=== PATIENT | male | born 1970 | race Caucasian/White ===

== ENCOUNTER 2016-09-23 17:51 | Emergency (ER) | payer OTHER ==
[2016-09-23 18:00] VITALS: TEMP 98.2
[2016-09-23 18:32] LABS: % IMMATURE GRANULYOCYTES 0.1 % (0.0-1.1); ABSOLUTE IMMATURE GRANULOCYTES 0.01 10^3/uL (0.00-0.10); ADD DIFF? NO; ADD MORPH? NO; ADD SCAN? NO; ATYPICAL LYMPHOCYTE FLAG 0 (0-99); FRAGMENT RBC FLAG 0 (0-99); HEMATOCRIT 43.8 % (40.0-51.0); HEMOGLOBIN 15.4 g/dL (13.7-17.5); LEFT SHIFT FLG 0 (0-99); LIPEMIA HEMOLYSIS FLAG 90 (0-99); MEAN CELL HEMOGLOBIN 31.7 pg (27.9-34.1); MEAN CELL HEMOGLOBIN CONCENTR. 35.2 g/dL (32.4-36.7); MEAN CELL VOLUME 90.1 fL (81.5-99.8); PLATELET CLUMPS FLAG 0 (0-99); PLATELET COUNT 239 10^3/uL (150-400); RED BLOOD CELL COUNT 4.86 10^6/uL (4.40-6.38); RED CELL DISTRIBUTION WIDTH 11.9 % (11.5-15.2)
[2016-09-23 18:46] LABS: COLOR PALE YELLOW; LEUKOCYTE ESTERASE,URINE NEGATIVE (NEGATIVE); NITRITE,URINE NEGATIVE (NEGATIVE)
[2016-09-23 18:50] LABS: CALCIUM 9.4 mg/dL (8.5-10.4); CARBON DIOXIDE 24 mEq/l (22-31); CHLORIDE 104 mEq/L (97-110); CREATININE 0.8 mg/dL (0.7-1.3); GLOMERULAR FILTRATION RATE > 60; GLUCOSE 92 mg/dL (70-100); SODIUM 139 mEq/L (134-144)
[2016-09-23 18:56] LABS: ANION GAP 11 mEq/L (8-16); POTASSIUM 4.2 mEq/L (3.5-5.2)
[2016-09-23] MEDS ORDERED: KETOROLAC 15 MG/1 ML SDV IVP ONE (19:02)
--- NOTE | 2016-09-23 19:08 | EDPHY ---
H & P Stated Complaint: left flank pain, hurts to the touch or breathing deep. Time Seen by Provider: 09/23/16 18:30 HPI/ROS: CHIEF COMPLAINT: left lower rib pain HISTORY OF PRESENT ILLNESS: 45-year-old male presents emergency department complaining of left lower rib pain x5 days. Patient reports he was on a bungee jump trampoline 6 days ago when he did a front flip and landed funny. He states he felt dontae. He woke up the next morning with left lower anterior chest wall tenderness that was worse with movement and palpation. Patient states that day he did a trampoline jump, landed and had similar pain. He is a distance runner and everyday since this has happened he has run 9-11 miles. Pt reports today he felt pain with every step running. He took a deep after running and had a sharp pain in his abdomen. He denies nausea, vomiting or diarrhea, no abdominal pain, no lightheadedness or dizziness. Patient reports he had costochondritis 7 months ago and this feels mildly similar. He denies urinary frequency, urgency or dysuria. No fatigue. Normal appetite. REVIEW OF SYSTEMS: A comprehensive 10 point review of systems is otherwise negative aside from elements mentioned in the history of present illness. Source: Patient Exam Limitations: No limitations - Social History Smoking Status: Never smoked - Physical Exam Exam: Physical Exam Gen: Alert and Oriented, NAD HEENT: PERRL, moist mucous membranes NECK: no meningismus CV: regular rate and regular rhythm PULM: CTAB, no wheezes ABDOMEN: soft, non tender to palpation, left anterior lower chest wall tender to palpation, left lateral lower chest wall tenderness to palpation, BS present BACK: No CVA tenderness NEURO: Neurologically grossly intact EXTREMITIES: normal appearing SKIN: no rash or break in skin on exposed skin PSYCH: answers questions appropriately. Constitutional: Initial Vital Signs Temperature (C) 36.8 C 09/23/16 17:56 Heart Rate 51 L 09/23/16 17:56 Respiratory Rate 18 09/23/16 17:56 Blood Pressure 129/74 H 09/23/16 17:56 O2 Sat (%) 96 09/23/16 17:56 O2 Delivery Mode Room Air Allergies/Adverse Reactions: No Known Allergies Allergy (Verified 09/23/16 17:55) Home Medications: Medication Instructions Recorded NK [No Known Home Meds] 09/23/16 Medical Decision Making - Diagnostics Imaging Results: Imaging Impressions Ribs w/Chest X-Ray 09/23/16 19:01 Impression: 1. Nondisplaced fracture at the costochondral junction anterolateral left ninth rib. Imaging: I viewed and interpreted images myself ED Course/Re-evaluation: IV established, CBC, chemistry panel and urinalysis ordered. CBC and chemistry panel are unremarkable, urinalysis is normal with RBCs. Vital signs are normal , he is afebrile. Physical exam shows no abdominal tenderness, pinpoint tenderness to palpation to left lower anterior lateral ribs. Left rib series with PA chest ordered, patient is given 15 mg of IV Toradol. Patient has a nondisplaced fracture at the costochondral junction anterolateral left ninth rib. This explains his pain. He has normal room air oxygen saturation, no left upper quadrant abdominal pain. Patient will be discharged home. He is instructed to take ibuprofen, ice, rest, cough and deep breathe and return to the emergency department for any abdominal pain, shortness of breath, fevers, cough. Patient is comfortable with this plan. Differential Diagnosis: Diagnosis considered but not limited to rib fracture, costochondritis, muscle strain, kidney stone, spleen injury. - Data Points Laboratory Results: Laboratory Results 09/23/16 18:25 09/23/16 18:25 09/23/16 09/23/16 09/23/16 18:25 18:25 18:10 WBC 7.58 10^3/uL 10^3/uL (3.80-9.50) RBC 4.86 10^6/uL 10^6/uL (4.40-6.38) Hgb 15.4 g/dL g/dL (13.7-17.5) Hct 43.8 % % (40.0-51.0) MCV 90.1 fL fL (81.5-99.8) MCH 31.7 pg pg (27.9-34.1) MCHC 35.2 g/dL g/dL (32.4-36.7) RDW 11.9 % % (11.5-15.2) Plt Count 239 10^3/uL 10^3/uL (150-400) MPV 9.0 fL fL (8.7-11.7) Neut % (Auto) 50.1 % % (39.3-74.2) Lymph % (Auto) 42.0 % % (15.0-45.0) [place] % (Auto) 5.8 % % (4.5-13.0) Eos % (Auto) 1.3 % % (0.6-7.6) Baso % (Auto) 0.7 % % (0.3-1.7) Nucleat RBC Rel Count 0.0 % % (0.0-0.2) Absolute Neuts (auto) 3.80 10^3/uL 10^3/uL (1.70-6.50) Absolute Lymphs (auto) 3.18 10^3/uL H 10^3/uL (1.00-3.00) Absolute Monos (auto) 0.44 10^3/uL 10^3/uL (0.30-0.80) Absolute Eos (auto) 0.10 10^3/uL 10^3/uL (0.03-0.40) Absolute Basos (auto) 0.05 10^3/uL 10^3/uL (0.02-0.10) Absolute Nucleated RBC 0.00 10^3/uL 10^3/uL (0-0.01) Immature Gran % 0.1 % % (0.0-1.1) Immature Gran # 0.01 10^3/uL 10^3/uL (0.00-0.10) Sodium 139 mEq/L mEq/L (134-144) Potassium 4.2 mEq/L mEq/L (3.5-5.2) Chloride 104 mEq/L mEq/L (97-110) Carbon Dioxide 24 mEq/l mEq/l (22-31) Anion Gap 11 mEq/L mEq/L (8-16) BUN 15 mg/dL mg/dL (7-23) Creatinine 0.8 mg/dL mg/dL (0.7-1.3) Estimated GFR > 60 Glucose 92 mg/dL mg/dL (70-100) Calcium 9.4 mg/dL mg/dL (8.5-10.4) Urine Color PALE YELLOW Urine Appearance CLEAR Urine pH 7.0 (5.0-7.5) Ur Specific [place] 1.004 (1.002-1.030) Urine Protein NEGATIVE (NEGATIVE) Urine Ketones NEGATIVE (NEGATIVE) Urine Blood NEGATIVE (NEGATIVE) Urine Nitrate NEGATIVE (NEGATIVE) Urine Bilirubin NEGATIVE (NEGATIVE) Urine Urobilinogen NEGATIVE EU EU (0.2-1.0) Ur Leukocyte Esterase NEGATIVE (NEGATIVE) Urine Glucose NEGATIVE (NEGATIVE) Medications Given: Discontinued Medications Ketorolac Tromethamine (Toradol) 15 mg IVP EDNOW ONE Stop: 09/23/16 19:03 Last Admin: 09/23/16 19:15 Dose: 15 mg Departure - Departure Disposition: Home, Routine, Self-Care Clinical Impression: Left rib fracture Qualifiers: Encounter type: initial encounter Rib fracture type: single rib Fracture type: closed Qualified Code(s): S22.32XA - Fracture of one rib, left side, initial encounter for closed fracture Condition: Good Instructions: Rib Fracture (ED) Additional Instructions: Rest, ice, take 600 mg of ibuprofen every 8 hours with food for 3-5 days, limit your activity if painful. Cough and deep breathe 10 times an hour while awake. Return to the emergency department for any fevers, shortness of breath, cough , abdominal pain, any new symptoms or concerns. Referrals: NONE *PRIMARY CARE P,. [Primary Care Provider] - As per Instructions
[2016-09-23 19:22] VITALS: RESP 16
[2016-09-23 20:14] VITALS: BP 118/78; PULSE 58; O2SAT 96
== END 2016-09-23 20:17 | disposition home or self-care (01) ==
DX: S22.32XA Fracture of one rib, left side, initial encounter for closed fracture (principal); X58.XXXA Exposure to other specified factors, initial encounter; Y99.8 Other external cause status; Y93.34 Activity, bungee jumping
CPT/HCPCS: 96374; J1885